=== PATIENT | male | born 1975 | race Caucasian/White ===

== ENCOUNTER 2019-02-08 10:41 | Outpatient (CLI) | payer BC ==
[2019-02-08] MEDS ORDERED: VALA500T4 PO (11:03)
== END 2019-02-08 23:59 | disposition home or self-care (01) ==
LOC: STAR 10:41
PROVIDERS: ATTEND Orthopaedic Surgery
DX: Z02.9 Encounter for administrative examinations, unspecified (principal)

== ENCOUNTER 2019-02-15 06:07 | Day surgery (SDC) | payer BC ==
[~2019-02-15] VITALS: Ht 172.7 cm; Wt 93.4 kg
[~2019-02-15 06:07] MED LIST: VALA500T4 PO
[2019-02-15] MEDS ORDERED: LACTATED RINGERS 1,000 ML IV SCH (06:59)
[2019-02-15] MEDS ORDERED: BUPIVACAINE/PF 0.5% ONE (08:24)
[2019-02-15] MEDS ORDERED: EPINEPHRINE 1 MG/ML, 1ML ONE (08:24)
[2019-02-15] MEDS ORDERED: LIDOCAINE 1%, 20ML ONE (08:25)
[2019-02-15] MEDS ORDERED: MIDAZOLAM 1 MG/ML, 2ML ONE (08:27)
[2019-02-15] MEDS ORDERED: FENTANYL PF 100 MCG/2ML ONE (08:28)
[2019-02-15] MEDS ORDERED: ONDANSETRON 2MG/ML, 2ML ONE (08:55)
[2019-02-15] MEDS ORDERED: DEXAMETHASONE 4 MG/ML, 1ML ONE (08:55)
[2019-02-15] MEDS ORDERED: PROPOFOL 10 MG/ML, 20ML ONE (08:55)
[2019-02-15] MEDS ORDERED: CEFAZOLIN 1,000 MG ONE (08:55)
[2019-02-15] MEDS ORDERED: KETOROLAC 30 MG/1 ML IV PRN (09:00)
[2019-02-15] MEDS ORDERED: OXYcodone 5 MG/5 ML ORAL.SOL UDC PO PRN (09:00)
[2019-02-15] MEDS ORDERED: ALBUTEROL SULFATE 2.5 MG/3 ML NPPB PRN (09:00)
[2019-02-15] MEDS ORDERED: VALACYCLOVIR 500MG TABLET PO SCH (09:00)
[2019-02-15] MEDS ORDERED: LABETALOL 5MG/ML, 20ML IV PRN (09:00)
[2019-02-15] MEDS ORDERED: PROMETHAZINE 25 MG/ML, 1ML IV PRN (09:00)
[2019-02-15] MEDS ORDERED: FENTANYL PF 100 MCG/2ML IV PRN (09:00)
[2019-02-15] MEDS ORDERED: HYDROmorphone 2 MG/ML, 1ML IVPush PRN (09:00)
[2019-02-15] MEDS ORDERED: ACETAMINOPHEN 325 MG TABLET PO PRN (09:00)
[2019-02-15] MEDS ORDERED: DIAZEPAM 5 MG/ML, 2ML IVPush PRN (09:00)
[2019-02-15] MEDS ORDERED: MEPERIDINE/PF 25MG/0.5ML IVPush PRN (09:00)
[2019-02-15] MEDS ORDERED: hydrALAzine 20 MG/ML, 1ML IV PRN (09:00)
== END 2019-02-15 11:05 | disposition home or self-care (01) ==
LOC: OR 06:07
PROVIDERS: ATTEND Orthopaedic Surgery
DX: S83.231A Complex tear of medial meniscus, current injury, right knee, initial encounter (principal); S83.281A Other tear of lateral meniscus, current injury, right knee, initial encounter; M22.41 Chondromalacia patellae, right knee; M19.90 Unspecified osteoarthritis, unspecified site; Z79.899 Other long term (current) drug therapy; Z98.890 Other specified postprocedural states; X58.XXXA Exposure to other specified factors, initial encounter; Y93.89 Activity, other specified; Y92.89 Other specified places as the place of occurrence of the external cause; Y99.8 Other external cause status
CPT/HCPCS: 29880; J0171; J0690; J1100; J2250; J2405; J2704; J3010; J7120